=== PATIENT | female | born 1970 | race Caucasian/White ===

== ENCOUNTER 2017-09-06 18:51 | Inpatient (IN) | payer MEDICAID ==
[~2017-09-06] VITALS: Ht 157.5 cm; Wt 94.3 kg
[2017-09-06] MEDS ORDERED: METH10 PO (19:28)
[2017-09-06] MEDS ORDERED: METF500T6 PO (19:28)
[2017-09-06 19:32] LABS: GLUCOSE,POINT OF CARE 393 MG/DL (70-110)
[2017-09-06] MEDS ORDERED: VANCOMYCIN HCL 1 GM/D5% WATER 200 ML IV ONE ×2 (20:00→22:00)
[2017-09-06] MEDS ORDERED: INSULIN REGULAR, HUMAN 100 UNITS/ML IVP ONE (20:00)
[2017-09-06] MEDS ORDERED: SODIUM CHLORIDE 0.9% 1,000 ML IV ONE (20:15)
[2017-09-06] MEDS ORDERED: ONDANSETRON HCL 4 MG/2 ML VIAL IVP PRN ×2 (20:30→21:15)
[2017-09-06] MEDS ORDERED: 0.9% SODIUM CHLORIDE 10 ML SYRINGE IVP PRN (20:30)
[2017-09-06] MEDS ORDERED: ACETAMINOPHEN 325 MG TABLET PO PRN ×2 (20:30→21:15)
[2017-09-06 20:46] LABS: INR 1.1 (0.9-1.1); PROTHROMBIN TIME 11.2 SEC (9.4-11.6)
[2017-09-06 20:47] LABS: ANION GAP 7 mmol/L (8-16); CARBON DIOXIDE 29 mmol/L (22-29); CHLORIDE 98 mmol/L (98-107); CREATININE 0.72 mg/dL (0.60-1.30); GLOMERULAR FILTR. RATE CALC > 60 mL/min (>60); GLUCOSE,RANDOM 352 mg/dL (70-110); POTASSIUM 4.4 mmol/L (3.5-5.1); SODIUM SERUM 134 mmol/L (136-145); UREA NITROGEN, BLOOD 9 mg/dL (7-18)
[2017-09-06 20:51] LABS: ALANINE AMINOTRANSFERASE 64 U/L (12-78); ALBUMIN 2.9 g/dL (3.4-5.0); ALKALINE PHOSPHATASE 197 U/L (46-116); ASPARTATE AMINOTRANSFERASE 81 U/L (15-37); BILIRUBIN,TOTAL 0.7 mg/dL (0.1-1.0)
[2017-09-06] MEDS ORDERED: DEXTROSE 50%-WATER 25 GM/50 ML SYRINGE IVP PRN (21:00)
[2017-09-06 21:03] LABS: LACTIC ACID 1.9 mmol/L (0.4-2.0)
[2017-09-06] MEDS ORDERED: MAGNESIUM HYDROXIDE SUSPENSION 30 ML UDCUP PO PRN (21:15)
[2017-09-06] MEDS ORDERED: IPRATROPIUM BROMIDE 0.5 MG/2.5 ML NEB SOLUTION NEB PRN (21:15)
[2017-09-06] MEDS ORDERED: ALBUTEROL SULFATE 2.5 MG/0.5 ML NEB SOLUTION NEB PRN (21:15)
[2017-09-06 21:52] LABS: BASOPHILS % (AUTO) 0.5 % (0.0-2.0); EOSINOPHILS % (AUTO) 0.5 % (1.0-6.0); HEMATOCRIT 27.9 % (36-46); HEMOGLOBIN 8.9 g/dL (12.0-16.0); LYMPHOCYTES % (AUTO) 15.7 % (22.0-44.0); MEAN CORPUSCULAR HEMOGLOBIN 19.5 pg (26.0-34.0); MEAN CORPUSCULAR HGB CONC 31.8 G/dL (31.0-37.0); MEAN CORPUSCULAR VOLUME 61 fL (80-100); MONOCYTES # (AUTO) 0.4 K/uL (0.1-1.0); MONOCYTES % (AUTO) 6.7 % (2.0-9.0); NEUTROPHILS # (AUTO) 5.1 K/uL (1.8-7.7); NEUTROPHILS % (AUTO) 76.6 % (40.0-70.0); RED BLOOD CELL COUNT(AUTO) 4.55 MIL/uL (4.00-5.20); RED CELL DISTRIBUTION WIDTH 26.6 % (11.5-14.5)
[2017-09-06 22:01] LABS: AMPHET/METH SCREEN,URINE NEGATIVE (NEGATIVE); BARBITURATE SCREEN, URINE NEGATIVE (NEGATIVE); BENZODIAZEPINES SCREEN,URINE NEGATIVE (NEGATIVE); CANNABINOID SCREEN,URINE NEGATIVE (NEGATIVE); COCAINE SCREEN,URINE NEGATIVE (NEGATIVE); METHADONE SCREEN, URINE POSITIVE (NEGATIVE); OPIATE SCREEN,URINE POSITIVE (NEGATIVE)
[2017-09-06 22:01] LABS: PLATELET COUNT (AUTO) 118 K/uL (150-450)
[2017-09-06 22:05] LABS: PHENCYCLIDINE SCREEN,URINE NEGATIVE (NEGATIVE)
[2017-09-06 22:09] VITALS: BP 122/65
[2017-09-06] MEDS: HYDROCODONE/ACETAMINOPHEN 5-325 MG TABLET PO PRN (22:36)
[2017-09-06 23:20] LABS: APPEARANCE,URINE SLIGHTLY CLOUDY (CLEAR); GLUCOSE, URINE (UA) 500 mg/dL (NEGATIVE); OCCULT BLOOD,URINE LARGE (NEGATIVE); PH,URINE 5.5 (5.0-8.0); PROTEIN,URINE TRACE (NEGATIVE)
[2017-09-06 23:21] LABS: BILIRUBIN,URINE NEGATIVE (NEGATIVE)
[2017-09-06 23:24] LABS: KETONES,URINE NEGATIVE (NEGATIVE); LEUKOCYTE ESTERASE ,URINE NEGATIVE (NEGATIVE); NITRATE,URINE NEGATIVE (NEGATIVE)
[2017-09-06 23:34] LABS: BACTERIA,URINE Few /HPF (None Seen); RBC,URINE >100 /HPF (0-2); WBC,URINE 0-2 /HPF (0-5)
[2017-09-06 23:35] LABS: SQUAMOUS EPITHELIAL CELL,UR Moderate /LPF (None Seen)
[2017-09-07] MEDS: PIPERACILLIN/TAZO 3.375 GM/D5W 50 ML IV SCH ×4 (01:14→18:24)
[2017-09-07 04:45] VITALS: BP 114/66
[2017-09-07] MEDS ORDERED: PNEUMOCOCCAL VACCINE POLYVALENT 0.5 ML VIAL [PPSV23] IM ONE (04:45)
[2017-09-07] MEDS: SODIUM CHLORIDE 0.9% 1,000 ML IV SCH (05:16)
[2017-09-07] MEDS: HYDROCODONE/ACETAMINOPHEN 5-325 MG TABLET PO PRN (05:28)
[2017-09-07] MEDS: INSULIN LISPRO 100 UNITS/ML SQ PRN ×4 (06:23→20:20)
[2017-09-07 07:02] LABS: BASOPHILS % (AUTO) 0.2 % (0.0-2.0); EOSINOPHILS % (AUTO) 0.8 % (1.0-6.0); HEMATOCRIT 24.2 % (36-46); HEMOGLOBIN 7.6 g/dL (12.0-16.0); LYMPHOCYTES # (AUTO) 1.2 K/uL (1.0-4.8); MEAN CORPUSCULAR HEMOGLOBIN 19.4 pg (26.0-34.0); MEAN CORPUSCULAR HGB CONC 31.6 G/dL (31.0-37.0); MEAN CORPUSCULAR VOLUME 61 fL (80-100); MONOCYTES # (AUTO) 0.3 K/uL (0.1-1.0); NEUTROPHILS # (AUTO) 2.7 K/uL (1.8-7.7); PLATELET COUNT (AUTO) 86 K/uL (150-450); RED BLOOD CELL COUNT(AUTO) 3.94 MIL/uL (4.00-5.20); RED CELL DISTRIBUTION WIDTH 26.8 % (11.5-14.5)
[2017-09-07 07:23] LABS: ALANINE AMINOTRANSFERASE 50 U/L (12-78); ALBUMIN 2.4 g/dL (3.4-5.0); ALKALINE PHOSPHATASE 130 U/L (46-116); ANION GAP 4 mmol/L (8-16); ASPARTATE AMINOTRANSFERASE 54 U/L (15-37); BILIRUBIN,TOTAL 0.7 mg/dL (0.1-1.0); CALCIUM, TOTAL 7.4 mg/dL (8.8-10.5); CARBON DIOXIDE 30 mmol/L (22-29); CHLORIDE 100 mmol/L (98-107); CREATININE 0.62 mg/dL (0.60-1.30); GLOMERULAR FILTR. RATE CALC > 60 mL/min (>60); GLUCOSE,RANDOM 151 mg/dL (70-110); POTASSIUM 3.8 mmol/L (3.5-5.1); SODIUM SERUM 134 mmol/L (136-145); TOTAL PROTEIN, SERUM 7.6 g/dL (6.4-8.2); UREA NITROGEN, BLOOD 10 mg/dL (7-18)
[2017-09-07 07:36] LABS: HEMOGLOBIN A1C 12.5 % (4.5-6.2)
[2017-09-07 07:38] LABS: GLUCOMETER DEV NAME(LOC) 6N 1E; GLUCOSE,POINT OF CARE 262 MG/DL (70-110)
[2017-09-07 07:38] LABS: GLUCOMETER DEV NAME(LOC) 6N 1E; GLUCOSE,POINT OF CARE 178 MG/DL (70-110)
[2017-09-07 08:09] LABS: FERRITIN 20 ng/mL (8-252)
[2017-09-07 08:25] LABS: % IRON SATURATION 7.7 % (22-44)
[2017-09-07] MEDS ORDERED: GADOBUTROL 1 MMOL/ML 10 ML VIAL IVP ONE (08:31)
[2017-09-07] MEDS: HEPARIN SODIUM,PORCINE 5,000 UNITS/ML VIAL SQ SCH ×2 (10:27→20:09)
[2017-09-07] MEDS: DOCUSATE SODIUM 100 MG CAPSULE PO SCH ×2 (10:27→20:09)
[2017-09-07] MEDS: VANCOMYCIN HCL 1.5 GM in DEXTROSE 5%-WATER 250 ML IV SCH ×2 (10:27→16:08)
[2017-09-07] MEDS: PANTOPRAZOLE SODIUM 40 MG DR TABLET PO SCH (10:27)
[2017-09-07 10:53] LABS: FOLATE SERUM 18.1 ng/mL (5.4-)
[2017-09-07] MEDS ORDERED: MAGNESIUM OXIDE 400 MG TABLET PO PRN (11:00)
[2017-09-07] MEDS ORDERED: MAGNESIUM SULFATE 4 GM/WATER 100 ML IV PRN (11:00)
[2017-09-07] MEDS ORDERED: MAGNESIUM SULFATE 2 GM in DEXTROSE 5%-WATER 50 ML IV PRN (11:00)
[2017-09-07 11:28] VITALS: BP 135/73
[2017-09-07 12:23] LABS: GLUCOMETER DEV NAME(LOC) 6N 1E; GLUCOSE,POINT OF CARE 210 MG/DL (70-110)
[2017-09-07 16:05] VITALS: BP 119/63
[2017-09-07 17:38] LABS: GLUCOMETER DEV NAME(LOC) 6N 2D; GLUCOSE,POINT OF CARE 208 MG/DL (70-110)
[2017-09-07] MEDS: METHADONE HCL 10 MG/5 ML SOLUTION ORAL.SYG PO SCH (18:25)
[2017-09-07 20:00] VITALS: BP 131/70
[2017-09-07 22:22] LABS: GLUCOMETER DEV NAME(LOC) 6N 1E; GLUCOSE,POINT OF CARE 188 MG/DL (70-110)
[2017-09-07 23:45] VITALS: BP 110/61
[2017-09-08] MEDS: VANCOMYCIN HCL 1.5 GM in DEXTROSE 5%-WATER 250 ML IV SCH ×3 (00:15→16:27)
[2017-09-08] MEDS: PIPERACILLIN/TAZO 3.375 GM/D5W 50 ML IV SCH ×4 (00:15→18:04)
[2017-09-08 04:00] VITALS: BP 124/66
[2017-09-08] MEDS: INSULIN LISPRO 100 UNITS/ML SQ PRN ×4 (06:12→20:31)
[2017-09-08 06:47] LABS: GLUCOMETER DEV NAME(LOC) 6N 1E; GLUCOSE,POINT OF CARE 232 MG/DL (70-110)
[2017-09-08 07:16] LABS: BASOPHILS % (AUTO) 0.4 % (0.0-2.0); EOSINOPHILS % (AUTO) 1.5 % (1.0-6.0); HEMATOCRIT 24.5 % (36-46); HEMOGLOBIN 7.7 g/dL (12.0-16.0); LYMPHOCYTES # (AUTO) 1.1 K/uL (1.0-4.8); LYMPHOCYTES % (AUTO) 34.7 % (22.0-44.0); MEAN CORPUSCULAR HEMOGLOBIN 19.3 pg (26.0-34.0); MEAN CORPUSCULAR HGB CONC 31.6 G/dL (31.0-37.0); MEAN CORPUSCULAR VOLUME 61 fL (80-100); MONOCYTES # (AUTO) 0.2 K/uL (0.1-1.0); MONOCYTES % (AUTO) 7.3 % (2.0-9.0); NEUTROPHILS # (AUTO) 1.8 K/uL (1.8-7.7); NEUTROPHILS % (AUTO) 56.1 % (40.0-70.0); PLATELET COUNT (AUTO) 73 K/uL (150-450); RED BLOOD CELL COUNT(AUTO) 4.01 MIL/uL (4.00-5.20)
[2017-09-08 07:52] LABS: ANION GAP 5 mmol/L (8-16); C-REACTIVE PROTEIN QUANT 2.13 mg/dL (0.00-0.30); CALCIUM, TOTAL 7.3 mg/dL (8.8-10.5); CARBON DIOXIDE 28 mmol/L (22-29); CHLORIDE 101 mmol/L (98-107); CREATININE 0.88 mg/dL (0.60-1.30); GLOMERULAR FILTR. RATE CALC > 60 mL/min (>60); GLUCOSE,RANDOM 201 mg/dL (70-110); POTASSIUM 3.8 mmol/L (3.5-5.1); SODIUM SERUM 134 mmol/L (136-145); UREA NITROGEN, BLOOD 10 mg/dL (7-18); VANCOMYCIN,RANDOM 26.1 mcg/mL (25.0-50.0)
[2017-09-08] MEDS: PANTOPRAZOLE SODIUM 40 MG DR TABLET PO SCH (07:54)
[2017-09-08] MEDS: DOCUSATE SODIUM 100 MG CAPSULE PO SCH ×2 (07:54→20:23)
[2017-09-08] MEDS: MULTIVITAMINS WITH MINERALS, THERAPEUTIC TABLET PO SCH (07:54)
[2017-09-08] MEDS: HEPARIN SODIUM,PORCINE 5,000 UNITS/ML VIAL SQ SCH ×2 (07:55→20:24)
[2017-09-08 07:57] VITALS: BP 128/64
[2017-09-08 08:23] LABS: ERYTHROCYTE SEDIMENTATION RATE 30 MM/HR (0-20)
[2017-09-08] MEDS: HYDROCODONE/ACETAMINOPHEN 5-325 MG TABLET PO PRN ×2 (09:23→17:29)
[2017-09-08] MEDS: SODIUM CHLORIDE 0.9% 1,000 ML IV SCH (09:30)
[2017-09-08 11:55] VITALS: BP 121/72
[2017-09-08 11:57] LABS: GLUCOMETER DEV NAME(LOC) 6N 2D; GLUCOSE,POINT OF CARE 248 MG/DL (70-110)
[2017-09-08 15:42] VITALS: BP 135/74
[2017-09-08] MEDS: METHADONE HCL 10 MG/5 ML SOLUTION ORAL.SYG PO SCH (18:48)
[2017-09-08 19:18] LABS: GLUCOMETER DEV NAME(LOC) 6N 1E; GLUCOSE,POINT OF CARE 276 MG/DL (70-110)
[2017-09-08 19:31] VITALS: BP 132/63
[2017-09-08 21:17] LABS: GLUCOMETER DEV NAME(LOC) 6N 1E; GLUCOSE,POINT OF CARE 274 MG/DL (70-110)
[2017-09-09] VITALS (7 sets, daily range): BP systolic 98–134; BP diastolic 55–89
[2017-09-09] MEDS: VANCOMYCIN HCL 1.5 GM in DEXTROSE 5%-WATER 250 ML IV SCH ×2
[2017-09-09] MEDS: PIPERACILLIN/TAZO 3.375 GM/D5W 50 ML IV SCH ×5 (04:21→23:28)
[2017-09-09 07:07] LABS: CALCIUM, TOTAL 7.6 mg/dL (8.8-10.5); CREATININE 1.57 mg/dL (0.60-1.30); POTASSIUM 4.2 mmol/L (3.5-5.1)
[2017-09-09] MEDS: INSULIN LISPRO 100 UNITS/ML SQ PRN ×4 (07:07→20:44)
[2017-09-09 07:54] LABS: BASOPHILS % (AUTO) 0.4 % (0.0-2.0); EOSINOPHILS % (AUTO) 1.4 % (1.0-6.0); HEMATOCRIT 23.4 % (36-46); HEMOGLOBIN 7.4 g/dL (12.0-16.0); LYMPHOCYTES # (AUTO) 0.8 K/uL (1.0-4.8); LYMPHOCYTES % (AUTO) 29.9 % (22.0-44.0); MEAN CORPUSCULAR HEMOGLOBIN 19.3 pg (26.0-34.0); MEAN CORPUSCULAR HGB CONC 31.7 G/dL (31.0-37.0); MEAN CORPUSCULAR VOLUME 61 fL (80-100); MONOCYTES # (AUTO) 0.2 K/uL (0.1-1.0); MONOCYTES % (AUTO) 8.4 % (2.0-9.0); NEUTROPHILS # (AUTO) 1.6 K/uL (1.8-7.7); NEUTROPHILS % (AUTO) 59.9 % (40.0-70.0); PLATELET COUNT (AUTO) 79 K/uL (150-450); RED BLOOD CELL COUNT(AUTO) 3.85 MIL/uL (4.00-5.20); RED CELL DISTRIBUTION WIDTH 26.9 % (11.5-14.5)
[2017-09-09] MEDS: DOCUSATE SODIUM 100 MG CAPSULE PO SCH ×2 (08:20→20:16)
[2017-09-09] MEDS: PANTOPRAZOLE SODIUM 40 MG DR TABLET PO SCH (08:20)
[2017-09-09] MEDS: HEPARIN SODIUM,PORCINE 5,000 UNITS/ML VIAL SQ SCH ×2 (08:21→20:16)
[2017-09-09] MEDS: MULTIVITAMINS WITH MINERALS, THERAPEUTIC TABLET PO SCH (08:21)
[2017-09-09] MEDS: HYDROCODONE/ACETAMINOPHEN 5-325 MG TABLET PO PRN ×2 (08:21→17:25)
[2017-09-09] MEDS: SODIUM CHLORIDE 0.9% 1,000 ML IV SCH (08:21)
[2017-09-09] MEDS: METHADONE HCL 10 MG/5 ML SOLUTION ORAL.SYG PO SCH (17:29)
[2017-09-09 18:58] LABS: GLUCOMETER DEV NAME(LOC) 6N 2D; GLUCOSE,POINT OF CARE 190 MG/DL (70-110)
[2017-09-09 18:58] LABS: GLUCOMETER DEV NAME(LOC) 6N 1E; GLUCOSE,POINT OF CARE 223 MG/DL (70-110)
[2017-09-09 18:58] LABS: GLUCOMETER DEV NAME(LOC) 6N 1E; GLUCOSE,POINT OF CARE 194 MG/DL (70-110)
[2017-09-09] MEDS: VANCOMYCIN HCL 750 MG in DEXTROSE 5%-WATER 250 ML IV SCH (20:16)
[2017-09-10 03:58] VITALS: BP 131/65
[2017-09-10] MEDS: PIPERACILLIN/TAZO 3.375 GM/D5W 50 ML IV SCH ×4 (05:54→23:46)
[2017-09-10] MEDS: SODIUM CHLORIDE 0.9% 1,000 ML IV SCH ×3 (05:54→23:48)
[2017-09-10] MEDS: INSULIN LISPRO 100 UNITS/ML SQ PRN ×4 (05:54→21:02)
[2017-09-10] MEDS: HYDROCODONE/ACETAMINOPHEN 5-325 MG TABLET PO PRN ×2 (05:58→17:38)
[2017-09-10 06:13] LABS: BASOPHILS % (AUTO) 0.7 % (0.0-2.0); EOSINOPHILS % (AUTO) 1.7 % (1.0-6.0); HEMATOCRIT 23.3 % (36-46); HEMOGLOBIN 7.3 g/dL (12.0-16.0); LYMPHOCYTES # (AUTO) 0.8 K/uL (1.0-4.8); LYMPHOCYTES % (AUTO) 35.2 % (22.0-44.0); MEAN CORPUSCULAR HEMOGLOBIN 19.2 pg (26.0-34.0); MEAN CORPUSCULAR HGB CONC 31.3 G/dL (31.0-37.0); MEAN CORPUSCULAR VOLUME 61 fL (80-100); MONOCYTES # (AUTO) 0.2 K/uL (0.1-1.0); MONOCYTES % (AUTO) 9.6 % (2.0-9.0); NEUTROPHILS # (AUTO) 1.2 K/uL (1.8-7.7); NEUTROPHILS % (AUTO) 52.8 % (40.0-70.0); RED CELL DISTRIBUTION WIDTH 27.1 % (11.5-14.5)
[2017-09-10 06:23] LABS: CALCIUM, TOTAL 7.6 mg/dL (8.8-10.5); CREATININE 1.78 mg/dL (0.60-1.30)
[2017-09-10 07:28] VITALS: BP 124/69
[2017-09-10 07:38] LABS: GLUCOMETER DEV NAME(LOC) 6N 2D; GLUCOSE,POINT OF CARE 206 MG/DL (70-110)
[2017-09-10 07:38] LABS: GLUCOMETER DEV NAME(LOC) 6N 2D; GLUCOSE,POINT OF CARE 173 MG/DL (70-110)
[2017-09-10] MEDS: VANCOMYCIN HCL 750 MG in DEXTROSE 5%-WATER 250 ML IV SCH ×2 (07:56→21:16)
[2017-09-10] MEDS: PANTOPRAZOLE SODIUM 40 MG DR TABLET PO SCH (07:57)
[2017-09-10] MEDS: DOCUSATE SODIUM 100 MG CAPSULE PO SCH ×2 (07:57→21:01)
[2017-09-10] MEDS: MULTIVITAMINS WITH MINERALS, THERAPEUTIC TABLET PO SCH (07:57)
[2017-09-10] MEDS: HEPARIN SODIUM,PORCINE 5,000 UNITS/ML VIAL SQ SCH (07:57)
[2017-09-10 08:38] LABS: PLATELET COUNT (AUTO) 74 K/uL (150-450)
[2017-09-10] MEDS: SOD FERRIC GLUC COMPLX/SUCROSE 125 MG in SODIUM CHLORIDE 0.9% 100 ML IV SCH (11:20)
[2017-09-10 12:00] VITALS: BP 132/76
[2017-09-10 15:26] VITALS: BP 128/75
[2017-09-10] MEDS: METHADONE HCL 10 MG/5 ML SOLUTION ORAL.SYG PO SCH (17:39)
[2017-09-10 19:00] VITALS: BP 129/67
[2017-09-10 19:52] LABS: GLUCOMETER DEV NAME(LOC) 6N 2D; GLUCOSE,POINT OF CARE 282 MG/DL (70-110)
[2017-09-10] MEDS ORDERED: VANCOMYCIN HCL 1 GM/D5% WATER 200 ML IV PRN (20:00)
[2017-09-10 21:33] LABS: GLUCOMETER DEV NAME(LOC) 6N 1E; GLUCOSE,POINT OF CARE 164 MG/DL (70-110)
[2017-09-10 21:33] LABS: GLUCOMETER DEV NAME(LOC) 6N 1E; GLUCOSE,POINT OF CARE 185 MG/DL (70-110)
[2017-09-10 23:32] VITALS: BP 138/81
[2017-09-11 05:07] VITALS: BP 123/77
[2017-09-11] MEDS: PIPERACILLIN/TAZO 3.375 GM/D5W 50 ML IV SCH ×3 (05:13→18:40)
[2017-09-11] MEDS: MORPHINE SULFATE 4 MG/ML SYRINGE IVP PRN ×2 (05:18→09:51)
[2017-09-11] MEDS: INSULIN LISPRO 100 UNITS/ML SQ PRN ×4 (05:19→20:45)
[2017-09-11 05:48] LABS: CALCIUM, TOTAL 7.4 mg/dL (8.8-10.5); CREATININE 1.88 mg/dL (0.60-1.30); POTASSIUM 3.9 mmol/L (3.5-5.1); VANCOMYCIN,RANDOM 26.7 mcg/mL (25.0-50.0)
[2017-09-11 07:03] LABS: BASOPHILS % (AUTO) 0.6 % (0.0-2.0); EOSINOPHILS % (AUTO) 1.7 % (1.0-6.0); HEMATOCRIT 22.1 % (36-46); HEMOGLOBIN 7.1 g/dL (12.0-16.0); LYMPHOCYTES # (AUTO) 0.9 K/uL (1.0-4.8); LYMPHOCYTES % (AUTO) 38.5 % (22.0-44.0); MEAN CORPUSCULAR HEMOGLOBIN 19.7 pg (26.0-34.0); MEAN CORPUSCULAR HGB CONC 32.1 G/dL (31.0-37.0); MEAN CORPUSCULAR VOLUME 61 fL (80-100); MONOCYTES # (AUTO) 0.2 K/uL (0.1-1.0); MONOCYTES % (AUTO) 8.8 % (2.0-9.0); NEUTROPHILS # (AUTO) 1.2 K/uL (1.8-7.7); NEUTROPHILS % (AUTO) 50.4 % (40.0-70.0); PLATELET COUNT (AUTO) 74 K/uL (150-450); RED BLOOD CELL COUNT(AUTO) 3.61 MIL/uL (4.00-5.20); RED CELL DISTRIBUTION WIDTH 27.2 % (11.5-14.5)
[2017-09-11] MEDS ORDERED: RINGERS SOLUTION,LACTATED 1,000 ML IV ONE ×2 (07:30→08:00)
[2017-09-11] MEDS ORDERED: LIDOCAINE HCL/PF 1% 30 ML VIAL INJ ONE (08:10)
[2017-09-11] MEDS ORDERED: BUPIVACAINE HCL/PF 0.5% 30 ML VIAL INJ ONE (08:10)
[2017-09-11] MEDS ORDERED: MIDAZOLAM HCL 2 MG/2 ML VIAL IVP PRN (08:15)
[2017-09-11] MEDS ORDERED: MORPHINE SULFATE 4 MG/ML SYRINGE IVP PRN ×3 (08:15)
[2017-09-11] MEDS ORDERED: ONDANSETRON HCL 4 MG/2 ML VIAL IVP PRN (08:15)
[2017-09-11] MEDS ORDERED: MORPHINE SULFATE 4 MG/ML SYRINGE ONE (09:24)
[2017-09-11] MEDS: SOD FERRIC GLUC COMPLX/SUCROSE 125 MG in SODIUM CHLORIDE 0.9% 100 ML IV SCH (09:52)
[2017-09-11 10:08] VITALS: BP 121/76
[2017-09-11] MEDS: PANTOPRAZOLE SODIUM 40 MG DR TABLET PO SCH (10:12)
[2017-09-11] MEDS: MULTIVITAMINS WITH MINERALS, THERAPEUTIC TABLET PO SCH (10:12)
[2017-09-11] MEDS: DOCUSATE SODIUM 100 MG CAPSULE PO SCH ×2 (10:12→20:41)
[2017-09-11] MEDS: VANCOMYCIN HCL 750 MG in DEXTROSE 5%-WATER 250 ML IV SCH (11:16)
[2017-09-11] MEDS ORDERED: FentaNYL CITRATE-PF 100 MCG/2 ML VIAL IVP ONE (12:00)
[2017-09-11] MEDS ORDERED: MIDAZOLAM HCL 2 MG/2 ML VIAL IVP ONE (12:00)
[2017-09-11 12:22] LABS: GLUCOMETER DEV NAME(LOC) 6N 2D; GLUCOSE,POINT OF CARE 180 MG/DL (70-110)
[2017-09-11 12:31] VITALS: BP 133/75
[2017-09-11 15:11] VITALS: BP 132/68
[2017-09-11] MEDS: METHADONE HCL 10 MG/5 ML SOLUTION ORAL.SYG PO SCH (17:07)
[2017-09-11 19:54] VITALS: BP 130/75
[2017-09-11] MEDS ORDERED: VANCOMYCIN HCL 500 MG in DEXTROSE 5%-WATER 100 ML IV SCH (20:00)
[2017-09-11 20:03] LABS: GLUCOMETER DEV NAME(LOC) 6N 1E; GLUCOSE,POINT OF CARE 177 MG/DL (70-110)
[2017-09-11 20:28] LABS: GLUCOMETER DEV NAME(LOC) 6N 2D; GLUCOSE,POINT OF CARE 209 MG/DL (70-110)
[2017-09-11] MEDS: HYDROCODONE/ACETAMINOPHEN 5-325 MG TABLET PO PRN (20:47)
[2017-09-11 22:42] LABS: GLUCOMETER DEV NAME(LOC) 6N 2D; GLUCOSE,POINT OF CARE 153 MG/DL (70-110)
[2017-09-11 23:49] VITALS: BP 122/61
[2017-09-12] MEDS: PIPERACILLIN/TAZO 3.375 GM/D5W 50 ML IV SCH ×4 (00:11→17:42)
[2017-09-12] MEDS: SODIUM CHLORIDE 0.9% 1,000 ML IV SCH ×3 (00:16→20:00)
[2017-09-12 03:47] VITALS: BP 141/69
[2017-09-12] MEDS ORDERED: PROPOFOL 1% 20 ML VIAL IVP ONE (05:35)
[2017-09-12 05:52] LABS: GLUCOMETER DEV NAME(LOC) 6N 2D; GLUCOSE,POINT OF CARE 107 MG/DL (70-110)
[2017-09-12 06:35] LABS: BASOPHILS % (AUTO) 0.6 % (0.0-2.0); EOSINOPHILS % (AUTO) 1.9 % (1.0-6.0); HEMATOCRIT 21.4 % (36-46); LYMPHOCYTES % (AUTO) 41.9 % (22.0-44.0); MEAN CORPUSCULAR HEMOGLOBIN 19.8 pg (26.0-34.0); MEAN CORPUSCULAR HGB CONC 32.2 G/dL (31.0-37.0); MEAN CORPUSCULAR VOLUME 62 fL (80-100); MONOCYTES # (AUTO) 0.2 K/uL (0.1-1.0); MONOCYTES % (AUTO) 7.9 % (2.0-9.0); NEUTROPHILS # (AUTO) 1.2 K/uL (1.8-7.7); NEUTROPHILS % (AUTO) 47.7 % (40.0-70.0); PLATELET COUNT (AUTO) 76 K/uL (150-450); RED BLOOD CELL COUNT(AUTO) 3.48 MIL/uL (4.00-5.20); RED CELL DISTRIBUTION WIDTH 27.2 % (11.5-14.5)
[2017-09-12 06:51] LABS: CALCIUM, TOTAL 7.7 mg/dL (8.8-10.5); CREATININE 1.82 mg/dL (0.60-1.30); POTASSIUM 3.8 mmol/L (3.5-5.1); VANCOMYCIN,RANDOM 23.8 mcg/mL (25.0-50.0)
[2017-09-12 08:14] VITALS: BP 131/73
[2017-09-12] MEDS: MULTIVITAMINS WITH MINERALS, THERAPEUTIC TABLET PO SCH (08:14)
[2017-09-12] MEDS: SOD FERRIC GLUC COMPLX/SUCROSE 125 MG in SODIUM CHLORIDE 0.9% 100 ML IV SCH (08:14)
[2017-09-12] MEDS: PANTOPRAZOLE SODIUM 40 MG DR TABLET PO SCH (08:14)
[2017-09-12] MEDS: DOCUSATE SODIUM 100 MG CAPSULE PO SCH ×2 (08:14→21:00)
[2017-09-12 08:27] LABS: PLATELET MORPHOLOGY COMMENT LARGE PLTS PRESENT
[2017-09-12] MEDS ORDERED: VANCOMYCIN HCL 750 MG in DEXTROSE 5%-WATER 250 ML IV ONE (09:00)
[2017-09-12 09:26] LABS: HIV 1-2 SCREEN 4TH GEN W/RFLX Non Reactive (Non Reactive)
[2017-09-12 10:48] LABS: APPEARANCE,URINE CLEAR (CLEAR); GLUCOSE, URINE (UA) NEGATIVE (NEGATIVE); PH,URINE 5.5 (5.0-8.0); PROTEIN,URINE NEGATIVE (NEGATIVE)
[2017-09-12 10:49] LABS: BILIRUBIN,URINE NEGATIVE (NEGATIVE); KETONES,URINE NEGATIVE (NEGATIVE); LEUKOCYTE ESTERASE ,URINE NEGATIVE (NEGATIVE); NITRATE,URINE NEGATIVE (NEGATIVE); OCCULT BLOOD,URINE NEGATIVE (NEGATIVE); UROBILINOGEN,URINE 0.2 mg/dL (<=1.0)
[2017-09-12 11:33] LABS: GLUCOMETER DEV NAME(LOC) 6N 2D; GLUCOSE,POINT OF CARE 253 MG/DL (70-110)
[2017-09-12] MEDS: INSULIN LISPRO 100 UNITS/ML SQ PRN ×2 (11:35→22:02)
[2017-09-12 11:37] LABS: CREATININE,URINE RANDOM 21.1 mg/dL (30.0-125.0); PROTEIN,URINE RANDOM 9 mg/dL (0-11.9); SODIUM,URINE RANDOM 73 mmol/l (20-110)
[2017-09-12 11:49] VITALS: BP 134/71
[2017-09-12] MEDS: HYDROCODONE/ACETAMINOPHEN 5-325 MG TABLET PO PRN (15:26)
[2017-09-12 16:23] VITALS: BP 142/76
[2017-09-12] MEDS: METHADONE HCL 10 MG/5 ML SOLUTION ORAL.SYG PO SCH (17:42)
[2017-09-12 19:02] LABS: GLUCOMETER DEV NAME(LOC) 6N 1E; GLUCOSE,POINT OF CARE 93 MG/DL (70-110)
[2017-09-12 20:23] VITALS: BP 144/77
[2017-09-12 22:08] LABS: GLUCOMETER DEV NAME(LOC) 6N 1E; GLUCOSE,POINT OF CARE 201 MG/DL (70-110)
[2017-09-13 00:04] VITALS: BP 130/74
[2017-09-13] MEDS: PIPERACILLIN/TAZO 3.375 GM/D5W 50 ML IV SCH ×2 (00:10→06:07)
[2017-09-13 04:54] VITALS: BP 141/75
[2017-09-13] MEDS: VANCOMYCIN HCL 1 GM/D5% WATER 200 ML IV SCH (06:07)
[2017-09-13] MEDS: SODIUM CHLORIDE 0.9% 1,000 ML IV SCH ×3 (06:13→22:24)
[2017-09-13 06:34] LABS: GLUCOMETER DEV NAME(LOC) 6N 1E; GLUCOSE,POINT OF CARE 148 MG/DL (70-110)
[2017-09-13 06:54] LABS: BASOPHILS % (AUTO) 0.6 % (0.0-2.0); EOSINOPHILS % (AUTO) 1.7 % (1.0-6.0); HEMATOCRIT 22.4 % (36-46); HEMOGLOBIN 7.1 g/dL (12.0-16.0); LYMPHOCYTES # (AUTO) 0.8 K/uL (1.0-4.8); LYMPHOCYTES % (AUTO) 31.8 % (22.0-44.0); MEAN CORPUSCULAR HEMOGLOBIN 19.6 pg (26.0-34.0); MEAN CORPUSCULAR HGB CONC 31.6 G/dL (31.0-37.0); MEAN CORPUSCULAR VOLUME 62 fL (80-100); MONOCYTES # (AUTO) 0.2 K/uL (0.1-1.0); MONOCYTES % (AUTO) 7.3 % (2.0-9.0); NEUTROPHILS # (AUTO) 1.5 K/uL (1.8-7.7); NEUTROPHILS % (AUTO) 58.6 % (40.0-70.0); PLATELET COUNT (AUTO) 70 K/uL (150-450); RED BLOOD CELL COUNT(AUTO) 3.61 MIL/uL (4.00-5.20); RED CELL DISTRIBUTION WIDTH 27.3 % (11.5-14.5)
[2017-09-13 07:05] LABS: CALCIUM, TOTAL 7.7 mg/dL (8.8-10.5); CREATININE 1.77 mg/dL (0.60-1.30)
[2017-09-13 07:56] VITALS: BP 121/67
[2017-09-13] MEDS: MULTIVITAMINS WITH MINERALS, THERAPEUTIC TABLET PO SCH (08:01)
[2017-09-13] MEDS: PANTOPRAZOLE SODIUM 40 MG DR TABLET PO SCH (08:01)
[2017-09-13] MEDS: DOCUSATE SODIUM 100 MG CAPSULE PO SCH ×3 (08:01→20:42)
[2017-09-13] MEDS: SOD FERRIC GLUC COMPLX/SUCROSE 125 MG in SODIUM CHLORIDE 0.9% 100 ML IV SCH (08:02)
[2017-09-13] MEDS: HYDROCODONE/ACETAMINOPHEN 5-325 MG TABLET PO PRN ×2 (08:06→15:04)
[2017-09-13 11:23] LABS: GLUCOMETER DEV NAME(LOC) 6N 1E; GLUCOSE,POINT OF CARE 207 MG/DL (70-110)
[2017-09-13] MEDS ORDERED: SODIUM CHLORIDE 0.9% 100 ML ONE (11:35)
[2017-09-13 11:46] VITALS: BP 131/67
[2017-09-13] MEDS: INSULIN LISPRO 100 UNITS/ML SQ PRN ×2 (12:02→20:41)
[2017-09-13 17:53] LABS: GLUCOMETER DEV NAME(LOC) 6N 2D; GLUCOSE,POINT OF CARE 104 MG/DL (70-110)
[2017-09-13 19:55] VITALS: BP 141/78
[2017-09-13] MEDS: METHADONE HCL 10 MG/5 ML SOLUTION ORAL.SYG PO SCH ×2 (20:23→22:24)
[2017-09-13 20:57] LABS: GLUCOMETER DEV NAME(LOC) 6N 2D; GLUCOSE,POINT OF CARE 158 MG/DL (70-110)
[2017-09-13 23:41] VITALS: BP 133/71
[2017-09-14] VITALS (13 sets, daily range): BP systolic 120–147; BP diastolic 60–87
[2017-09-14] MEDS: INSULIN LISPRO 100 UNITS/ML SQ PRN ×4 (05:35→20:50)
[2017-09-14 05:43] LABS: GLUCOMETER DEV NAME(LOC) 6N 2D; GLUCOSE,POINT OF CARE 137 MG/DL (70-110)
[2017-09-14 06:13] LABS: BASOPHILS % (AUTO) 0.6 % (0.0-2.0); EOSINOPHILS % (AUTO) 2.1 % (1.0-6.0); HEMATOCRIT 21.8 % (36-46); HEMOGLOBIN 7.1 g/dL (12.0-16.0); LYMPHOCYTES % (AUTO) 35.9 % (22.0-44.0); MEAN CORPUSCULAR HEMOGLOBIN 20.3 pg (26.0-34.0); MEAN CORPUSCULAR HGB CONC 32.4 G/dL (31.0-37.0); MEAN CORPUSCULAR VOLUME 63 fL (80-100); MONOCYTES # (AUTO) 0.2 K/uL (0.1-1.0); MONOCYTES % (AUTO) 8.3 % (2.0-9.0); NEUTROPHILS # (AUTO) 1.5 K/uL (1.8-7.7); NEUTROPHILS % (AUTO) 53.1 % (40.0-70.0); PLATELET COUNT (AUTO) 82 K/uL (150-450); RED BLOOD CELL COUNT(AUTO) 3.49 MIL/uL (4.00-5.20); RED CELL DISTRIBUTION WIDTH 27.3 % (11.5-14.5)
[2017-09-14] MEDS: VANCOMYCIN HCL 1 GM/D5% WATER 200 ML IV SCH (06:38)
[2017-09-14 06:40] LABS: ALBUMIN 2.3 g/dL (3.4-5.0); CALCIUM, TOTAL 7.8 mg/dL (8.8-10.5); CREATININE 1.65 mg/dL (0.60-1.30); POTASSIUM 3.9 mmol/L (3.5-5.1); VANCOMYCIN,RANDOM 15.6 mcg/mL (25.0-50.0)
[2017-09-14 08:03] LABS: PLATELET MORPHOLOGY COMMENT LARGE PLTS PRESENT
[2017-09-14] MEDS: DOCUSATE SODIUM 100 MG CAPSULE PO SCH ×2 (09:06→20:46)
[2017-09-14] MEDS: SOD FERRIC GLUC COMPLX/SUCROSE 125 MG in SODIUM CHLORIDE 0.9% 100 ML IV SCH (09:06)
[2017-09-14] MEDS: MULTIVITAMINS WITH MINERALS, THERAPEUTIC TABLET PO SCH (09:06)
[2017-09-14] MEDS: PANTOPRAZOLE SODIUM 40 MG DR TABLET PO SCH (09:06)
[2017-09-14] MEDS ORDERED: SODIUM CHLORIDE 0.9% 250 ML IV ONE (11:53)
[2017-09-14 17:22] LABS: GLUCOMETER DEV NAME(LOC) 6N 1E; GLUCOSE,POINT OF CARE 196 MG/DL (70-110)
[2017-09-14] MEDS: METHADONE HCL 10 MG/5 ML SOLUTION ORAL.SYG PO SCH (18:42)
[2017-09-14 19:43] LABS: GLUCOMETER DEV NAME(LOC) 6N 2D; GLUCOSE,POINT OF CARE 175 MG/DL (70-110)
[2017-09-14] MEDS: SODIUM CHLORIDE 0.9% 1,000 ML IV SCH (20:46)
[2017-09-14 23:28] LABS: GLUCOMETER DEV NAME(LOC) 6N 1E; GLUCOSE,POINT OF CARE 126 MG/DL (70-110)
[2017-09-15 03:14] VITALS: BP 133/77
[2017-09-15 06:20] LABS: BASOPHILS % (AUTO) 0.9 % (0.0-2.0); EOSINOPHILS % (AUTO) 1.8 % (1.0-6.0); HEMATOCRIT 24.3 % (36-46); HEMOGLOBIN 7.8 g/dL (12.0-16.0); LYMPHOCYTES # (AUTO) 0.9 K/uL (1.0-4.8); MEAN CORPUSCULAR HEMOGLOBIN 20.9 pg (26.0-34.0); MEAN CORPUSCULAR HGB CONC 32.2 G/dL (31.0-37.0); MEAN CORPUSCULAR VOLUME 65 fL (80-100); MONOCYTES # (AUTO) 0.3 K/uL (0.1-1.0); MONOCYTES % (AUTO) 8.3 % (2.0-9.0); PLATELET COUNT (AUTO) 90 K/uL (150-450); RED BLOOD CELL COUNT(AUTO) 3.74 MIL/uL (4.00-5.20)
[2017-09-15 06:28] LABS: GLUCOMETER DEV NAME(LOC) 6N 1E; GLUCOSE,POINT OF CARE 83 MG/DL (70-110)
[2017-09-15] MEDS: VANCOMYCIN HCL 1 GM/D5% WATER 200 ML IV SCH (06:32)
[2017-09-15 06:39] LABS: CALCIUM, TOTAL 7.8 mg/dL (8.8-10.5); CREATININE 1.55 mg/dL (0.60-1.30); POTASSIUM 4.1 mmol/L (3.5-5.1)
[2017-09-15 08:02] VITALS: BP 146/79
[2017-09-15] MEDS: DOCUSATE SODIUM 100 MG CAPSULE PO SCH ×2 (09:00→19:36)
[2017-09-15] MEDS: MULTIVITAMINS WITH MINERALS, THERAPEUTIC TABLET PO SCH (09:05)
[2017-09-15] MEDS: PANTOPRAZOLE SODIUM 40 MG DR TABLET PO SCH (09:05)
[2017-09-15] MEDS: HYDROCODONE/ACETAMINOPHEN 5-325 MG TABLET PO PRN (09:05)
[2017-09-15] MEDS: SOD FERRIC GLUC COMPLX/SUCROSE 125 MG in SODIUM CHLORIDE 0.9% 100 ML IV SCH (09:10)
[2017-09-15] MEDS: SODIUM CHLORIDE 0.9% 1,000 ML IV SCH ×2 (09:10→19:24)
[2017-09-15 11:37] VITALS: BP 137/70
[2017-09-15 11:57] LABS: GLUCOMETER DEV NAME(LOC) 6N 1E; GLUCOSE,POINT OF CARE 191 MG/DL (70-110)
[2017-09-15] MEDS: INSULIN LISPRO 100 UNITS/ML SQ PRN ×2 (12:13→17:35)
[2017-09-15 15:54] VITALS: BP 153/78
[2017-09-15 17:43] LABS: GLUCOMETER DEV NAME(LOC) 6N 1E; GLUCOSE,POINT OF CARE 117 MG/DL (70-110)
[2017-09-15 19:20] VITALS: BP 141/90
[2017-09-15] MEDS: METHADONE HCL 10 MG/5 ML SOLUTION ORAL.SYG PO SCH (19:24)
[2017-09-15 19:42] LABS: GLUCOMETER DEV NAME(LOC) 6N 2D; GLUCOSE,POINT OF CARE 112 MG/DL (70-110)
[2017-09-15 23:42] VITALS: BP 135/67
[2017-09-16 04:06] VITALS: BP 124/70
[2017-09-16] MEDS: VANCOMYCIN HCL 1 GM/D5% WATER 200 ML IV SCH (06:46)
[2017-09-16 07:42] VITALS: BP 133/68
[2017-09-16] MEDS: SOD FERRIC GLUC COMPLX/SUCROSE 125 MG in SODIUM CHLORIDE 0.9% 100 ML IV SCH (08:38)
[2017-09-16] MEDS: PANTOPRAZOLE SODIUM 40 MG DR TABLET PO SCH (08:38)
[2017-09-16] MEDS: MULTIVITAMINS WITH MINERALS, THERAPEUTIC TABLET PO SCH (08:38)
[2017-09-16] MEDS: DOCUSATE SODIUM 100 MG CAPSULE PO SCH (08:38)
[2017-09-16 08:39] LABS: POTASSIUM 4.1 mmol/L (3.5-5.1)
[2017-09-16 08:40] LABS: CREATININE 1.52 mg/dL (0.60-1.30)
[2017-09-16] MEDS: HYDROCODONE/ACETAMINOPHEN 5-325 MG TABLET PO PRN (08:41)
[2017-09-16 08:48] LABS: GLUCOMETER DEV NAME(LOC) 6N 1E; GLUCOSE,POINT OF CARE 112 MG/DL (70-110)
[2017-09-16 11:40] VITALS: BP 132/70
[2017-09-16 13:03] LABS: GLUCOMETER DEV NAME(LOC) 6N 2D; GLUCOSE,POINT OF CARE 133 MG/DL (70-110)
[2017-09-16 17:38] LABS: HEPATITIS C RNA QNT 1013520 IU/mL
[2017-09-18 23:06] LABS: HEPATITIS C GENO (PCR RFLX) 1a
== END 2017-09-16 13:34 | disposition home or self-care (01) | DRG 361 ==
LOC: EMS 18:55 → 6N 21:11
PROVIDERS: ADMIT Internal Medicine; ATTEND Internal Medicine
PROC: 0Y9M0ZZ Drainage of Right Foot, Open Approach (ICD-10-PCS; 2017-09-11)
PROC: 0YBM0ZZ Excision of Right Foot, Open Approach (ICD-10-PCS; principal; 2017-09-11 09:15)
PROC: 30233N1 Transfusion of Nonautologous Red Blood Cells into Peripheral Vein, Percutaneous Approach (ICD-10-PCS; 2017-09-14)
DX: L03.115 Cellulitis of right lower limb (principal); N17.9 Acute kidney failure, unspecified; D61.818 Other pancytopenia; L02.611 Cutaneous abscess of right foot; E11.621 Type 2 diabetes mellitus with foot ulcer; E11.21 Type 2 diabetes mellitus with diabetic nephropathy; E11.65 Type 2 diabetes mellitus with hyperglycemia; D50.9 Iron deficiency anemia, unspecified; F19.11 Other psychoactive substance abuse, in remission; E66.01 Morbid (severe) obesity due to excess calories; D63.8 Anemia in other chronic diseases classified elsewhere; B19.20 Unspecified viral hepatitis C without hepatic coma; K74.60 Unspecified cirrhosis of liver; Z16.24 Resistance to multiple antibiotics; B95.62 Methicillin resistant Staphylococcus aureus infection as the cause of diseases classified elsewhere; Z90.49 Acquired absence of other specified parts of digestive tract; Z79.84 Long term (current) use of oral hypoglycemic drugs; Z68.38 Body mass index [BMI] 38.0-38.9, adult
CPT/HCPCS: 73720; 76700; 82043; 82105; 82570; 82595; 82607; 82728; 82746; 83010; 83036; 83540; 83550; 83605; 83615; 83735; 84100; 84145; 84156; 84300; 85651; 86140; 86160; 86803; 86850; 86860; 86870; 86880; 86900; 86901; 86905; 86906; 86922; 86931; 86970; 86971; 86999; 87040; 87070; 87081; 87147; 87205; 87340; 87389; 87522; 87902; 93306; 93970; 96365; 96366; 96375; 99285; A9585; J1644; J1815; J2250; J2270; J2543; J2704; J2916; J3010; J3370; J3475; J3490; J7030; J7050; J7060; J7120; P9039

== ENCOUNTER 2018-03-01 20:07 | Emergency (ER) | payer MEDICAID ==
[~2018-03-01] VITALS: Ht 157.5 cm; Wt 88.6 kg
[~2018-03-01 20:07] MED LIST: METH10 PO
[2018-03-01 20:37] LABS: GLUCOSE,POINT OF CARE 297 MG/DL (70-110)
[2018-03-01] MEDS ORDERED: SODIUM CHLORIDE 0.9% 1,000 ML IV ONE (21:30)
[2018-03-01] MEDS ORDERED: VANCOMYCIN HCL 1 GM/D5% WATER 200 ML IV ONE (21:30)
[2018-03-01] MEDS ORDERED: LIDOCAINE 2%/EPI 1:200,000/PF 20 ML VIAL INJ ONE (21:30)
[2018-03-01] MEDS ORDERED: KETOROLAC TROMETHAMINE 30 MG/ML VIAL IVP ONE (21:30)
[2018-03-01 21:45] LABS: BASOPHILS % (AUTO) 0.5 % (0.0-2.0); EOSINOPHILS % (AUTO) 0.9 % (1.0-6.0); HEMATOCRIT 32.5 % (36-46); HEMOGLOBIN 10.9 g/dL (12.0-16.0); LYMPHOCYTES # (AUTO) 0.9 K/uL (1.0-4.8); LYMPHOCYTES % (AUTO) 25.7 % (22.0-44.0); MEAN CORPUSCULAR HEMOGLOBIN 27.3 pg (26.0-34.0); MEAN CORPUSCULAR HGB CONC 33.7 G/dL (31.0-37.0); MEAN CORPUSCULAR VOLUME 81 fL (80-100); MONOCYTES # (AUTO) 0.3 K/uL (0.1-1.0); MONOCYTES % (AUTO) 8.6 % (2.0-9.0); NEUTROPHILS # (AUTO) 2.2 K/uL (1.8-7.7); NEUTROPHILS % (AUTO) 64.3 % (40.0-70.0); RED BLOOD CELL COUNT(AUTO) 4.02 MIL/uL (4.00-5.20)
[2018-03-01 21:51] LABS: ANION GAP 5 mmol/L (8-16); CALCIUM, TOTAL 8.2 mg/dL (8.8-10.5); CARBON DIOXIDE 28 mmol/L (22-29); CHLORIDE 99 mmol/L (98-107); CREATININE 0.78 mg/dL (0.60-1.30); GLOMERULAR FILTR. RATE CALC > 60 mL/min (>60); GLUCOSE,RANDOM 306 mg/dL (70-110); POTASSIUM 3.5 mmol/L (3.5-5.1); SODIUM SERUM 132 mmol/L (136-145); UREA NITROGEN, BLOOD 13 mg/dL (7-18)
[2018-03-01 21:57] LABS: ALANINE AMINOTRANSFERASE 84 U/L (12-78); ALBUMIN 2.6 g/dL (3.4-5.0); ALKALINE PHOSPHATASE 215 U/L (46-116); ASPARTATE AMINOTRANSFERASE 81 U/L (15-37); TOTAL PROTEIN, SERUM 8.6 g/dL (6.4-8.2)
[2018-03-01 22:33] LABS: PLATELET COUNT (AUTO) 80 K/uL (150-450)
[2018-03-02 00:57] VITALS: BP 142/84
== END 2018-03-02 01:24 | disposition home or self-care (01) ==
LOC: EMS 20:08
DX: L02.413 Cutaneous abscess of right upper limb (principal); F11.10 Opioid abuse, uncomplicated; F11.90 Opioid use, unspecified, uncomplicated; E11.9 Type 2 diabetes mellitus without complications; Z90.49 Acquired absence of other specified parts of digestive tract; Z79.899 Other long term (current) drug therapy
CPT/HCPCS: 10060; 36415; 80053; 82962; 85025; 87070; 87077; 87186; 87205; 96365; 96366; 96375; 99285; J1885; J3370; J7030

== ENCOUNTER 2019-09-15 17:57 | Emergency (ER) | payer MEDICAID ==
[~2019-09-15] VITALS: Ht 157.5 cm; Wt 95.5 kg
[2019-09-15] MEDS ORDERED: LIDOCAINE 1%/EPI 1:200,000/PF 10 ML VIAL INJ ONE (18:30)
[2019-09-15] MEDS ORDERED: ACETAMINOPHEN 500 MG TABLET PO ONE (18:45)
[2019-09-15] MEDS ORDERED: SODIUM CHLORIDE 0.9% 1,000 ML IV ONE (18:45)
[2019-09-15] MEDS ORDERED: LORazepam 1 MG TABLET PO ONE (18:45)
[2019-09-15] MEDS ORDERED: CefTRIAXone 1 GM/DEXTROSE 50 ML IV ONE (19:15)
[2019-09-15] MEDS ORDERED: CefTRIAXone SODIUM 1 GM/VIAL IM ONE (19:45)
[2019-09-15] MEDS ORDERED: LIDOCAINE/PF 1% 2 ML VIAL IM ONE (19:45)
[2019-09-15 20:14] VITALS: BP 141/66
== END 2019-09-15 20:31 | disposition home or self-care (01) ==
LOC: EMS 17:57
DX: L02.413 Cutaneous abscess of right upper limb (principal); E11.9 Type 2 diabetes mellitus without complications; F11.90 Opioid use, unspecified, uncomplicated
CPT/HCPCS: 10060; 96372; 99283; J0696; J3490 ×2; J7030

== ENCOUNTER 2019-09-17 18:34 | Emergency (ER) | payer MEDICAID ==
[~2019-09-17] VITALS: Ht 157.5 cm; Wt 95.5 kg
[2019-09-17] MEDS ORDERED: SPIR25 PO (18:39)
[2019-09-17] MEDS ORDERED: INSLAN SQ (18:39)
[2019-09-17] MEDS ORDERED: INSNPH SQ (18:39)
[2019-09-17 20:37] VITALS: BP 132/80
== END 2019-09-17 20:39 | disposition home or self-care (01) ==
LOC: EMS 18:35
DX: L02.413 Cutaneous abscess of right upper limb (principal); F11.90 Opioid use, unspecified, uncomplicated; F15.90 Other stimulant use, unspecified, uncomplicated; E11.9 Type 2 diabetes mellitus without complications; Z79.4 Long term (current) use of insulin; Z79.899 Other long term (current) drug therapy

== ENCOUNTER 2019-09-21 02:24 | Emergency (ER) | payer MEDICAID ==
[~2019-09-21] VITALS: Ht 157.5 cm; Wt 95.5 kg
[~2019-09-21 02:24] MED LIST changes: +INSLAN SQ; +INSNPH SQ; +SPIR25 PO
[2019-09-21 02:27] VITALS: BP 148/73
== END 2019-09-21 07:15 | disposition left against medical advice (07) ==
LOC: EMS 02:24
DX: Z48.02 Encounter for removal of sutures (principal); Z53.21 Procedure and treatment not carried out due to patient leaving prior to being seen by health care provider

== ENCOUNTER 2020-01-17 12:46 | Emergency (ER) | payer MEDICAID, OTHER ==
[~2020-01-17] VITALS: Ht 165.1 cm; Wt 97.7 kg
[2020-01-17 12:51] VITALS: BP 168/76
[2020-01-17] MEDS ORDERED: OMEP10 PO (13:04)
[2020-01-17] MEDS ORDERED: INSU100I26 SQ (13:04)
[2020-01-17] MEDS ORDERED: METH10SO PO (13:04)
[2020-01-17 14:55] LABS: GLUCOSE,POINT OF CARE 327 MG/DL (70-110)
== END 2020-01-17 13:46 | disposition home or self-care (01) ==
LOC: EMS 12:47
DX: L02.413 Cutaneous abscess of right upper limb (principal); E11.9 Type 2 diabetes mellitus without complications; F11.90 Opioid use, unspecified, uncomplicated; Z90.89 Acquired absence of other organs

== ENCOUNTER 2020-11-15 09:57 | Day surgery (SDC) | payer OTHER ==
[~2020-11-15] VITALS: Ht 154.9 cm; Wt 95.5 kg
[~2020-11-15 09:57] MED LIST changes: +AMLO-257 PO; +CALC-52 PO; +FERR-89 PO; +FOLI-130 PO; +FURO40 PO; +HYDR25TA2 PO; -INSLAN SQ; -INSNPH SQ; +INSU3INS10 SQ; +LEVO750T68 PO; +MAGN400T7 PO; +METF-961 PO; -METH10 PO; +METH10SO PO; +OMEP10 PO; +SODIUM CHLORIDE 0.9% 1,000 ML ONE; +SOFO1TAB PO; +SPIR-37 PO; -SPIR25 PO; +VITA80008 PO
[2020-11-15] MEDS ORDERED: PROPOFOL 1% 20 ML VIAL IVP ONE (09:58)
[2020-11-15] MEDS ORDERED: SODIUM CHLORIDE 0.9% 1,000 ML IV ONE (10:00)
[2020-11-15 10:14] LABS: COVID AG,FIA SOURCE NASOPHARYNGEAL
[2020-11-15] MEDS ORDERED: INSU100I26 SQ (10:45)
[2020-11-15] MEDS ORDERED: INSU100V36 SQ (10:45)
[2020-11-15] MEDS ORDERED: PANT40TA54 PO (10:45)
== END 2020-11-15 12:15 | disposition home or self-care (01) ==
LOC: SURGERY 09:57
PROVIDERS: ATTEND Student in an Organized Health Care Education/Training Program
DX: I85.00 Esophageal varices without bleeding (principal); K31.89 Other diseases of stomach and duodenum; K76.6 Portal hypertension; D50.9 Iron deficiency anemia, unspecified; E11.9 Type 2 diabetes mellitus without complications; I10 Essential (primary) hypertension; K74.60 Unspecified cirrhosis of liver; Z90.49 Acquired absence of other specified parts of digestive tract; Z98.890 Other specified postprocedural states; Z79.899 Other long term (current) drug therapy
CPT/HCPCS: 43235; 84703; 87426; C9803; J2704; J7030